=== PATIENT | female | born 1985 | race African-American/Black ===

== ENCOUNTER 2020-01-09 08:59 | Emergency (ER) | payer MEDICARE, MEDICAID, SELFPAY ==
[2020-01-09 09:31] VITALS: BP 135/92; PULSE 76; RESP 19; TEMP 37.3; O2SAT 98
--- NOTE | 2020-01-09 10:40 | ED.GENADULT ---
HPI - General Adult General Chief complaint: Upper Respiratory Infection Stated complaint: cold symptoms Time Seen by Provider: 01/09/20 09:36 Source: patient Mode of arrival: ambulatory Limitations: no limitations History of Present Illness HPI narrative: Patient in the room is a 34-year-old female who presents to emergency department for evaluation of congestion rhinorrhea sore throat and cough for the last 2 days patient presents with family noting that she has taken [id number] medications with minimal improvement denies fever chills nausea vomiting diarrhea on arrival is in the room in no distress patient has not been seen for this complaint Related Data Allergies Allergy/AdvReac Type Severity Reaction Status Date / Time No Known Allergies Allergy Verified 07/02/18 18:23 Review of Systems Review of Systems: All systems reviewed & are unremarkable except as noted in HPI and below PMFSH Past Medical History Medical History (Updated 01/09/20 @ 10:43 by Fabián Cardona PA-C) Diabetes mellitus Hearing impaired Social History Social History Gender identity (if verbalized by the patient): Female Exam Narrative: Exam Narrative: GENERAL: Well-appearing, well-nourished, and in no acute distress. HEAD: Normocephalic, atraumatic. EYES: PERRLA and EOMI. ENT: Nares clear, no rhinorrhea or epistaxis. Mucous membranes moist. Oropharynx with erythema and without tonsillar hypertrophy exudate or other lesions. . Uvula midline no trismus or drooling NECK: Supple. No adenopathy or masses. CHEST: Clear to auscultation. No respiratory distress. No wheezes rales or rhonchi HEART: Regular rate and rhythm. No murmur heard. EXTREMITIES: Normal range of motion. No edema. SKIN: Warm, dry, no rash. NEURO: No focal deficits. Alert and oriented x3. Cranial nerves II through XII grossly intact. Normal speech and gait PSYCH: Normal mood and affect. Course Course Emergency Course: Patient in the room in no distress aware of case findings treatment plan and diagnosis agreeing to follow-up as directed Vital Signs Vital signs: Vital Signs Temperature 99.1 F 01/09/20 09:31 Pulse Rate 76 01/09/20 09:31 Respiratory Rate 19 01/09/20 09:31 Blood Pressure 135/92 H 01/09/20 09:31 Pulse Oximetry 98 01/09/20 09:31 Temperature 99.1 F 01/09/20 09:31 Pulse Rate 76 01/09/20 09:31 Respiratory Rate 19 01/09/20 09:31 Blood Pressure 135/92 H 01/09/20 09:31 Pulse Oximetry 98 01/09/20 09:31 Medical Decision Making MDM Narrative Medical decision making narrative: Patient with likely viral upper respiratory infection afebrile nontoxic-appearing no distress provided with reasons to return and agreeing to follow with primary care felt appropriate for outpatient reevaluation Vital Signs Vital Signs: Vital Signs Temperature 99.1 F 01/09/20 09:31 Pulse Rate 76 01/09/20 09:31 Respiratory Rate 19 01/09/20 09:31 Blood Pressure 135/92 H 01/09/20 09:31 Pulse Oximetry 98 01/09/20 09:31 Temperature 99.1 F 01/09/20 09:31 Pulse Rate 76 01/09/20 09:31 Respiratory Rate 19 01/09/20 09:31 Blood Pressure 135/92 H 01/09/20 09:31 Pulse Oximetry 98 01/09/20 09:31 Lab Data Labs: Influenza A Screen Negative Reference Range: Negative Influenza B Screen Negative Reference Range: Negative Strep Screen Presumptive Negative *(Reference Range: Negative)* Discharge Plan Discharge Clinical Impression: Upper respiratory infection Patient Disposition: Home, Self-Care Condition: Stable Instructions: Antibiotic Form, Cold Symptoms (ED) Additional Instructions: Follow up with your primary care doctor in 5-7 days for re-evaluation. Go to ER for worsening pain, vision changes, nausea/vomiting, fever/chills, weakness, chest pain, shortness of breath, numbness/tingling,
[2020-01-09 10:59] VITALS: PULSE 80; RESP 16; O2SAT 100
== END 2020-01-09 11:34 | disposition home or self-care (01) ==
PROVIDERS: Emergency Provider Emergency Medicine
DX: J06.9 Acute upper respiratory infection, unspecified (principal); E11.9 Type 2 diabetes mellitus without complications
CPT/HCPCS: 87081; 87804; 87880; 99283

== ENCOUNTER 2023-04-24 15:00 | Emergency (ER) | payer OTHER, SELFPAY ==
--- NOTE | ~2023-04-24 | CT_ITS ---
EXAMINATION: CT brain wo con INDICATION: Headache COMPARISON: 10/06/2010 TECHNIQUE: Standard unenhanced head CT. The dose-length product (DLP) was 756.67 mGy-cm. The mA was a djusted according to patient size. Iterative reconstruction technique was employed. FINDINGS: There is no intracranial hemorrhage, acute infarction, or abnormal mass lesion. The ventric les are normal. There is no abnormal mass effect or midline shift. The herrera-white matter differentiat ion is normal. The basal cisterns are patent. There are surgical changes in the orbits. The paranasal sinuses, mastoids and calvarium are normal. IMPRESSION: 1. No acute intracranial abnormality. Reviewed, dictated and finalized at location F.
[2023-04-24 15:15] VITALS: BP 151/92; PULSE 91; RESP 16; TEMP 37; O2SAT 100
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
[2023-04-24] MEDS: SODIUM CHLORIDE 0.9% IV 1,000 ML 999 ML IV CONT ×2 (20:34→22:03)
[2023-04-24] MEDS: KETOROLAC 30 MG/ML VIAL (*BKC) IV PUSH (20:35)
[2023-04-24] MEDS: METOCLOPRAMIDE HCL INJ 10 MG/2 ML VIAL IV PUSH (20:36)
[2023-04-24] MEDS: diphenhydrAMINE HCl INJ 50 MG/ML VIAL 25 MG IV PUSH (20:37)
[2023-04-24] MEDS: ACETAMINOPHEN 500 MG TABLET 1000 MG PO (20:37)
[2023-04-24 20:46] LABS: Basophils Percent Auto 0.7 % (0.2-1.2); Eosinophils Percent Auto 0.2 % (0-4.4); Hematocrit 35.7 % (37.0-47.0); Hemoglobin 11.3 g/dL (12.0-15.0); Immature Granulocyte Absolute 0.02 K/mm3 (0.00-0.031); Immature Granulocyte Percent A 0.3 % (0-0.5); Immature Platelet Fraction Pct 14.8 % (0.9-11.2); Lymphocytes Absolute Auto 2.11 K/mm3 (0.9-3.2); Lymphocytes Percent Auto 35.5 % (18.3-44.2); Mean Corpuscular HGB Conc 31.7 g/dl (32-36); Mean Corpuscular Hemoglobin 28.3 pg (26-34); Mean Corpuscular Volume 89.3 fl (80-100); Mean Platelet Volume 13.7 fl (7.4-10.4); Monocytes Absolute Auto 0.5 K/mm3 (0.1-0.6); Monocytes Percent Auto 8.8 % (2.6-8.5); Neutrophils Absolute Auto 3.2 K/mm3 (1.3-6.7); Neutrophils Percent Auto 54.5 % (45.5-73.1); Platelet Count Result 173 k/mm3 (150-375); Red Cell Distribution Width 12.2 % (11.5-14.5); White Blood Count 5.9 K/mm3 (4.5-10.0)
[2023-04-24 21:19] LABS: Alanine Aminotransferase 18 U/L (6-35); Albumin Level 3.8 g/dL (3.5-5.1); Alkaline Phosphatase 95 U/L (38-126); Anion Gap 10 mmol/L (8-16); Aspartate Amino Transferase 20 U/L (14-36); Bilirubin,Total 1.1 mg/dL (0.2-1.3); Blood Urea Nitrogen 32 mg/dL (7-17); Calcium 8.7 mg/dL (8.4-10.2); Carbon Dioxide 23 mmol/L (22-30); Chloride 95 mmol/L (98-107); Estimated CRCL calculation 56 ml/min; Estimated Glomerular Filt Rate > 60; Glucose 437 mg/dL (65-110); Potassium 4.5 mmol/L (3.4-5.0); Sodium 128 mmol/L (137-145)
[2023-04-24 21:20] LABS: Influenza A QL RT-PCR Negative (Negative); Influenza B QL RT-PCR Negative (Negative); SARS-CoV-2 RNA PCR Negative (Negative)
== END 2023-04-24 22:59 | disposition home or self-care (01) ==
PROVIDERS: Emergency Provider Physician Assistant
DX: R51.9 Headache, unspecified (principal); E10.65 Type 1 diabetes mellitus with hyperglycemia; Z79.4 Long term (current) use of insulin; H91.90 Unspecified hearing loss, unspecified ear
CPT/HCPCS: 36415; 70450; 80053; 85025; 85055; 87636; 96361; 96374; 96375; 99284; A9270; J1200; J1885; J2765; J7030

== ENCOUNTER 2023-05-04 14:20 | Emergency (ER) | payer OTHER, SELFPAY ==
[2023-05-04 14:48] VITALS: BP 144/95; PULSE 91; RESP 16; TEMP 36.6; O2SAT 100
--- NOTE | 2023-05-04 15:56 | ED.EXTPRO ---
HPI - Extremity Problem General Chief complaint: Extremity Problem,Nontraumatic Stated complaint: Swollen Feet Time Seen by Provider: 05/04/23 15:56 Source: patient Mode of arrival: ambulatory Limitations: no limitations History of Present Illness HPI Narrative: 37 y/o with history of diabetes, visually impaired and hearing impaired, presented with c/o bilateral leg swelling, right worse than left for 2 days. Patient is unsure of blood sugar levels, but reports med compliance. Denies redness to legs, denies calf pain. Denies chest pain, palpitations, sob, decreased urinary output, fatigue, nausea, vomiting, fevers or chills. Reports increase in salty foods. Patient uses ASL and mother at bedside assisted in translation. Related Data Home Medications Medication Instructions Recorded Confirmed Novolog FlexPen U-100 Insulin 3 units subcut DIRECTED 05/04/23 05/04/23 brimonidine 0.2 % eye drops 1 drp ophthalmic (eye) DIRECTED 05/04/23 05/04/23 dorzolamide 22.3 mg-timolol 6.8 1 drp ophthalmic (eye) DIRECTED 05/04/23 05/04/23 mg/mL eye drops insulin glargine 100 unit/mL 15 unit subcut DAILY 05/04/23 05/04/23 subcutaneous cartridge Allergies Allergy/AdvReac Type Severity Reaction Status Date / Time No Known Allergies Allergy Verified 05/04/23 14:35 Review of Systems Review of Systems: CONSTITUTIONAL: Denies body aches, fever, chills, or sweats. EYES: Denies visual changes, redness, or discharge. ENT: Denies rhinorrhea, congestion, sore throat, or otalgia. CARDIOVASCULAR: Reports BLE edema denies chest pain, palpitations. RESPIRATORY: Denies cough or dyspnea. GASTROINTESTINAL: Denies abdominal pain, nausea, vomiting, or diarrhea. GENITOURINARY: Denies dysuria or hematuria. SKIN: Denies rash, itching, or wounds. MUSCULOSKELETAL: Denies back pain, joint pain, or myalgia. NEUROLOGIC: Denies headache, numbness, tingling, or weakness. PSYCH: Denies depression or anxiety. All systems reviewed & are unremarkable except as noted in HPI and below PMFSH Past Medical History Medical History Diabetes mellitus Hearing impaired Visual impairment Social History Social History Gender identity (if verbalized by the patient): Female Comments At time of signature, I have reviewed and agree with nursing past medical, surgical, social and family history unless otherwise noted. Please see nursing chart for further information. There is no relevant family history pertinent to the presenting complaint Exam Narrative: GENERAL: Well-appearing, well-nourished, and in no acute distress. HEAD: Normocephalic, atraumatic. EYES: No redness or drainage. ENT: Mucous membranes pink and moist. No rhinorrhea. Bilateral hearing aides. NECK: Normal AROM. Supple. No lymphadenopathy. CHEST: No respiratory distress. Clear to auscultation. HEART: Regular rate and rhythm. No murmur appreciated. Normal peripheral pulses. ABDOMEN: Soft, nontender, nondistended, normal active bowel sounds. MUSCULOSKELETAL: No bony tenderness. EXTREMITIES: Bilateral pedal and ankle edema, 2+ right, 1+ left; Normal range of motion. SKIN: Warm, dry, no rash. Capillary refill normal. Normal skin turgor. Course Course Emergency Course: Patient is aware of diagnosis, understands and agrees to treatment plan. Anticipatory guidance given. Patient agrees to follow-up as directed and is aware of reasons to seek care at the emergency department. Portions of this record may have been created with voice recognition software Level of Care: Express Care Visit Vital Signs Vital signs: Vital Signs Temperature 97.9 F 05/04/23 14:48 Pulse Rate 91 05/04/23 14:48 Respiratory Rate 16 05/04/23 14:48 Blood Pressure 144/95 H 05/04/23 14:48 Pulse Oximetry 100 05/04/23 14:48 Oxygen Delivery Room Air 05/04/23 14:48 Temp
[2023-05-04 16:12] LABS: Glucose Point of Care > 500 mg/dl (65-105)
== END 2023-05-04 16:30 | disposition left against medical advice (07) ==
PROVIDERS: Emergency Provider Nurse Practitioner Family
DX: R22.43 Localized swelling, mass and lump, lower limb, bilateral (principal); E11.65 Type 2 diabetes mellitus with hyperglycemia; Z79.4 Long term (current) use of insulin
CPT/HCPCS: 82948; 99212; G0463

== ENCOUNTER 2023-06-22 12:41 | Emergency (ER) | payer OTHER, SELFPAY ==
--- NOTE | ~2023-06-22 | US_ITS ---
EXAMINATION: US right upper quadrant DATE: 06/22/2023 14:06 INDICATION: epigastric pain TECHNIQUE: Multiple grayscale and Doppler ultrasound images of the right upper quadrant were obtained . COMPARISON: None available. FINDINGS: The visualized portions of the pancreas are normal. The liver is normal with normal echogen icity and echotexture. No surface nodularity. Normal hepatopetal flow in the main portal vein. The ga llbladder was contracted. The common bile duct measures mm. There was no sonographic Fall sign. IMPRESSION: Contracted gallbladder, which limits evaluation. Otherwise normal right upper quadrant ultrasound fin dings. Reviewed, dictated and finalized at location K. IMPRESSION: Contracted gallbladder, which limits evaluation. Otherwise normal right upper q uadrant ultrasound findings.
[2023-06-22 12:44] VITALS: BP 170/86; PULSE 95; RESP 20; TEMP 36.1; O2SAT 100
[2023-06-22 13:46] LABS: Appearance Urine Clear (Clear); Bacteria Urine None Seen /hpf; Bilirubin Urine Negative (Negative); Color Urine Yellow (Yellow); Glucose Urine UA Negative (Negative); Ketones Urine Negative (Negative); Leukocyte Esterase Ur Trace LEU/UL (Negative); Nitrate Urine Negative (Negative); Non Pathogenic Casts 0-2; Protein Urine 3+ mg/dL (Negative); RBC Urine 0-2 /hpf (0-2); Specific Grav Ur 1.012 (1.001-1.035); Squamous Epithelial Cell Urine None seen /hpf (Few); Urobilinogen Urine 0.2 mg/dL (<2.0)
--- NOTE | 2023-06-22 13:47 | ED.ABDPAIN ---
HPI - Abdominal Pain General Chief Complaint: Abdominal Pain Stated Complaint: abdominal pain Time Seen by Provider: 06/22/23 13:35 History of Present Illness HPI narrative: Pt presents with epigastric abdominal pain for a week tio chavarria per mother. Pt has had some vomiting but no diarrhea and no melena. Pt denies fever. Related Data Home Medications Medication Instructions Recorded Confirmed Novolog FlexPen U-100 Insulin 3 units subcut DIRECTED 05/04/23 05/04/23 brimonidine 0.2 % eye drops 1 drp ophthalmic (eye) DIRECTED 05/04/23 05/04/23 dorzolamide 22.3 mg-timolol 6.8 1 drp ophthalmic (eye) DIRECTED 05/04/23 05/04/23 mg/mL eye drops insulin glargine 100 unit/mL 15 unit subcut DAILY 05/04/23 05/04/23 subcutaneous cartridge Allergies Allergy/AdvReac Type Severity Reaction Status Date / Time No Known Allergies Allergy Verified 06/22/23 13:13 Review of Systems Review of Systems: All systems reviewed & are unremarkable except as noted in HPI and below PMFSH Past Medical History Medical History Diabetes mellitus Hearing impaired Visual impairment Social History Social History Gender identity (if verbalized by the patient): Female Exam Const: General: healthy appearing Nutritional Appearance: well nourished Orientation/consciousness: patient oriented x3 Limitations: no limitations Eyes: Conjunctivae: conjunctivae normal EOM: EOMs intact bilaterally Neck: Neck: normal visual inspection Chest: Chest palpation & inspection: normal inspection of the chest Resp: Effort & Inspection: normal respiratory effort Auscultation: clear to auscultation bilaterally Cardio: Rate: regular rate Rhythm: regular rhythm GI: GI Palp: Yes Soft to palpation and Yes Tenderness to palpation present (GI) (epigastrum and ruq) Auscultation: normal bowel sounds Skin: General skin exam: normal color Rashes: no rashes Wounds: no wounds Neuro: General: patient oriented x3 and moves all extremities Speech: normal speech Extrem: General: normal to inspection and no clubbing, cyanosis or edema Psych: Mental Status: mental status grossly normal Affect: normal affect Attitude: cooperative Course Vital Signs Vital signs: Vital Signs Temperature 97.0 F L 06/22/23 12:44 Pulse Rate 95 06/22/23 12:44 Respiratory Rate 20 06/22/23 12:44 Blood Pressure 170/86 H 06/22/23 12:44 Pulse Oximetry 100 06/22/23 12:44 Oxygen Delivery Room Air 06/22/23 12:44 Temperature 97.0 F L 06/22/23 12:44 Pulse Rate 78 06/22/23 14:47 Respiratory Rate 18 06/22/23 14:47 Blood Pressure 157/89 H 06/22/23 14:47 Pulse Oximetry 99 06/22/23 14:47 Oxygen Delivery Room Air 06/22/23 12:44 MDM - Abdominal Pain MDM Narrative Medical decision making narrative: labs and sono fine. mild uti will treat for pain and go home on antibiotics for possible pyelo Differential Diagnosis Differential diagnosis: Likely abdominal pain, gastroenteritis, pancreatitis and other (cholecystitis) Lab Data 06/22/23 13:50 06/22/23 13:50 Labs: Lab Results 06/22/23 06/22/23 Range/Units 13:10 13:50 WBC 5.6 (4.5-10.0) K/mm3 RBC 3.46 L (4.2-5.4) M/mm3 Hgb 10.1 L (12.0-15.0) g/dL Hct 32.0 L (37.0-47.0) % MCV 92.5 (80-100) fl MCH 29.2 (26-34) pg MCHC 31.6 L (32-36) g/dl RDW 11.9 (11.5-14.5) % Plt Count 315 D (150-375) k/mm3 MPV 11.4 H (7.4-10.4) fl Immature Gran % (Auto) 0.4 (0-0.5) % Neut % (Auto) 54.0 (45.5-73.1) % Lymph % (Auto) 35.2 (18.3-44.2) % [place] % (Auto) 7.4 (2.6-8.5) % Eos % (Auto) 2.3 (0-4.4) % Baso % (Auto) 0.7 (0.2-1.2) % Lymph # (Auto) 1.96 (0.9-3.2) K/mm3 [place] # (Auto) 0.4 (0.1-0.6) K/mm3 Eos # (Auto) 0.1 (0-0.3) K/mm3 Baso # (Auto) 0.0 (0.0-0.1) K/mm3 Abs Immat G
[2023-06-22 13:54] LABS: Add Urine Microscopic? YES
[2023-06-22 13:59] LABS: Basophils Percent Auto 0.7 % (0.2-1.2); Eosinophils Absolute Auto 0.1 K/mm3 (0-0.3); Eosinophils Percent Auto 2.3 % (0-4.4); Hemoglobin 10.1 g/dL (12.0-15.0); Immature Granulocyte Absolute 0.02 K/mm3 (0.00-0.031); Immature Granulocyte Percent A 0.4 % (0-0.5); Lymphocytes Absolute Auto 1.96 K/mm3 (0.9-3.2); Lymphocytes Percent Auto 35.2 % (18.3-44.2); Mean Corpuscular HGB Conc 31.6 g/dl (32-36); Mean Corpuscular Hemoglobin 29.2 pg (26-34); Mean Corpuscular Volume 92.5 fl (80-100); Mean Platelet Volume 11.4 fl (7.4-10.4); Monocytes Absolute Auto 0.4 K/mm3 (0.1-0.6); Monocytes Percent Auto 7.4 % (2.6-8.5); Platelet Count Result 315 k/mm3 (150-375); Red Blood Count 3.46 M/mm3 (4.2-5.4); Red Cell Distribution Width 11.9 % (11.5-14.5); White Blood Count 5.6 K/mm3 (4.5-10.0)
[2023-06-22 14:10] LABS: Alanine Aminotransferase 18 U/L (6-35); Albumin Level 3.6 g/dL (3.5-5.1); Alkaline Phosphatase 111 U/L (38-126); Anion Gap 3 mmol/L (8-16); Aspartate Amino Transferase 27 U/L (14-36); Bilirubin,Total 0.3 mg/dL (0.2-1.3); Blood Urea Nitrogen 26 mg/dL (7-17); Calcium 9.2 mg/dL (8.4-10.2); Carbon Dioxide 27 mmol/L (22-30); Chloride 105 mmol/L (98-107); Estimated CRCL calculation 55 ml/min; Estimated Glomerular Filt Rate 52; Glucose 216 mg/dL (65-110); Lipase 100 U/L (23-300); Potassium 3.8 mmol/L (3.4-5.0); Sodium 135 mmol/L (137-145)
[2023-06-22 14:47] VITALS: BP 157/89; PULSE 78; RESP 18; O2SAT 99
== END 2023-06-22 14:48 | disposition home or self-care (01) ==
PROVIDERS: Emergency Provider Emergency Medicine; PCP Physician Assistant
DX: N39.0 Urinary tract infection, site not specified (principal); E11.9 Type 2 diabetes mellitus without complications; Z79.4 Long term (current) use of insulin
CPT/HCPCS: 36415; 76705; 80053; 81001; 81025; 83690; 85025; 87077; 87086; 87186; 99284

== ENCOUNTER 2023-07-02 18:29 | Emergency (ER) | payer OTHER, SELFPAY ==
[2023-07-02] VITALS (19 sets, daily range): BP systolic 160–175; BP diastolic 94–113; PULSE 67–97; RESP 15–18; TEMP 36.3–36.6; O2SAT 91–100
--- NOTE | ~2023-07-02 | XR_ITS ---
EXAMINATION: XR chest 1V portable Exam Date/Time: 07/02/2023 20:10 CDT HISTORY: epigastric pain Comparison: None. RESULT: Lines, tubes, and devices: None. Lungs and pleura: Slightly low lung volumes with crowding, otherwise clear. Cardiomediastinal silhouette: Normal. Other: No acute osseous or upper abdominal finding. IMPRESSION: No acute cardiopulmonary process. Reviewed, dictated and finalized at location K.
--- NOTE | ~2023-07-02 | CT_ITS ---
EXAMINATION: CT abdomen pelvis w con DATE: 07/02/2023 21:14 INDICATION: abdominal pain TECHNIQUE: Computed tomography (CT) of the abdomen and pelvis was performed with 100 mL Omnipaque-350 intravenous contrast. Automated exposure control and iterative reconstruction technique were employe d. The dose-length product was 695.05 mGy-cm. COMPARISON: None. FINDINGS: Lower thorax: Unremarkable Liver: Normal. Biliary/Gallbladder: Gallbladder is collapsed. No bile duct dilation. Pancreas: No mass or duct dilation. Spleen: Normal. Adrenals:No mass. Kidneys: No mass, stone, or hydronephrosis. GI tract: Moderate distal esophageal and gastric wall edema. No small or large bowel dilation. Normal appendix. Mesentery/Peritoneum: No ascites, mass, or free air. Retroperitoneum: No mass. Pelvis: Moderate wall thickening in a well distended urinary bladder. Retroverted and retroflexed taylor jacqueline. Soft Tissues: Soft tissues and body wall unremarkable. Bones: No acute osseous finding. IMPRESSION: Moderate esophagitis/gastritis. Cystitis. Reviewed, dictated and finalized at location K.
--- NOTE | ~2023-07-02 | US_ITS ---
EXAMINATION: US venous doppler [facility] DATE: 07/02/2023 21:28 INDICATION: lower extremity edema eval for dvt . TECHNIQUE: Grayscale images without and with compression and Doppler images of the bilateral lower ex tremity veins were obtained. COMPARISON: None FINDINGS: The right common femoral vein, profunda (deep) femoral vein, femoral vein, popliteal vein, peroneal v ein, posterior tibial veins, gastrocnemius vein, and greater saphenous vein are patent. The left common femoral vein, profunda (deep) femoral vein, femoral vein, popliteal vein, peroneal v ein, posterior tibial veins, gastrocnemius vein, and greater saphenous vein are patent. IMPRESSION: Patent bilateral lower extremity veins. No evidence of deep venous thrombosis. Reviewed, dictated and finalized at location K.
[2023-07-02 19:11] LABS: Basophils Absolute Auto 0.1 K/mm3 (0.0-0.1); Basophils Percent Auto 0.9 % (0.2-1.2); Eosinophils Absolute Auto 0.1 K/mm3 (0-0.3); Eosinophils Percent Auto 1.9 % (0-4.4); Hematocrit 34.4 % (37.0-47.0); Hemoglobin 10.1 g/dL (12.0-15.0); Immature Granulocyte Absolute 0.02 K/mm3 (0.00-0.031); Immature Granulocyte Percent A 0.3 % (0-0.5); Lymphocytes Absolute Auto 2.06 K/mm3 (0.9-3.2); Lymphocytes Percent Auto 30.7 % (18.3-44.2); Mean Corpuscular HGB Conc 29.4 g/dl (32-36); Mean Corpuscular Hemoglobin 29.5 pg (26-34); Mean Corpuscular Volume 100.6 fl (80-100); Mean Platelet Volume 11.5 fl (7.4-10.4); Monocytes Absolute Auto 0.5 K/mm3 (0.1-0.6); Monocytes Percent Auto 6.8 % (2.6-8.5); Neutrophils Percent Auto 59.4 % (45.5-73.1); Platelet Count Result 254 k/mm3 (150-375); Red Blood Count 3.42 M/mm3 (4.2-5.4); Red Cell Distribution Width 11.9 % (11.5-14.5); White Blood Count 6.7 K/mm3 (4.5-10.0)
--- NOTE | 2023-07-02 19:20 | ECG_ITS ---
Measurements Intervals Yeso Rate: 91 P: 68 [place]: 154 QRS: 19 QRSD: 77 T: -5 QT: 355 QTc: 438 Interpretive Statements SINUS RHYTHM NONSPECIFIC T-WAVE ABNORMALITY BORDERLINE ECG NO PREVIOUS ECG AVAILABLE FOR COMPARISON Electronically Signed On 07-03-2023 7:42:10 CDT by Rui Landry M.D.
[2023-07-02 19:27] LABS: Anisocytosis 1+ (NORMAL); Ovalocytes 1+ (NORMAL); Platelet Estimate Adequate (Adequate); Schistocytes None Seen (NORMAL)
[2023-07-02 19:45] LABS: Alanine Aminotransferase 20 U/L (6-35); Albumin Level 4.1 g/dL (3.5-5.1); Alkaline Phosphatase 113 U/L (38-126); Anion Gap 8 mmol/L (8-16); Aspartate Amino Transferase 30 U/L (14-36); Bilirubin,Total 0.7 mg/dL (0.2-1.3); Blood Urea Nitrogen 36 mg/dL (7-17); Calcium 9.6 mg/dL (8.4-10.2); Carbon Dioxide 23 mmol/L (22-30); Chloride 105 mmol/L (98-107); Estimated CRCL calculation 45 ml/min; Estimated Glomerular Filt Rate 48; Glucose 101 mg/dL (65-110); Lipase 91 U/L (23-300); Potassium 4.1 mmol/L (3.4-5.0); Sodium 136 mmol/L (137-145)
[2023-07-02 19:51] LABS: Appearance Urine Clear (Clear); Bacteria Urine None Seen /hpf; Bilirubin Urine Negative (Negative); Blood Urine Negative (Negative); Color Urine Yellow (Yellow); Glucose Urine UA Negative (Negative); Ketones Urine Negative (Negative); Leukocyte Esterase Ur Negative LEU/UL (Negative); Nitrate Urine Negative (Negative); Non Pathogenic Casts 0-2; Protein Urine 2+ mg/dL (Negative); RBC Urine 0-2 /hpf (0-2); Specific Grav Ur 1.006 (1.001-1.035); Squamous Epithelial Cell Urine None seen /hpf (Few); Urobilinogen Urine 0.2 mg/dL (<2.0); WBC Urine 0-5 /hpf; pH Urine 5.5 (5.0-9.0)
[2023-07-02 19:52] LABS: Add Urine Microscopic? YES
[2023-07-02 20:05] LABS: NT Pro B Type Natriuretic Pept 248 pg/mL (19.9-100); Troponin I 0.022 ng/mL (0.000-0.034)
[2023-07-02 20:06] LABS: Magnesium 2.2 mg/dL (1.6-2.3)
--- NOTE | 2023-07-02 20:08 | ED.GENADULT ---
HPI - General Adult General Chief complaint: Unspecified Stated complaint: BACK,ABD PAIN, FEET SWELLING Time Seen by Provider: 07/02/23 19:11 History of Present Illness HPI narrative: Patient 37-year-old female who presents the emergency department with chief complaint of epigastric pain. Patient reports that at present time she been having discomfort patient states that she been seen in the emergency department and has been instructed to follow-up with her primary care provider the patient states that she called her primary doctor who told her to come back to the emergency department for reevaluation. Patient reports that she has not had a GI evaluation reports no endoscopy reports she still has her gallbladder and reports she still has her appendix. Related Data Home Medications Medication Instructions Recorded Confirmed Novolog FlexPen U-100 Insulin 3 units subcut DIRECTED 05/04/23 05/04/23 brimonidine 0.2 % eye drops 1 drp ophthalmic (eye) DIRECTED 05/04/23 05/04/23 dorzolamide 22.3 mg-timolol 6.8 1 drp ophthalmic (eye) DIRECTED 05/04/23 05/04/23 mg/mL eye drops insulin glargine 100 unit/mL 15 unit subcut DAILY 05/04/23 05/04/23 subcutaneous cartridge Allergies Allergy/AdvReac Type Severity Reaction Status Date / Time No Known Allergies Allergy Verified 06/22/23 13:13 Review of Systems Review of Systems: A 10 system review of systems was completed on the patient and is negative except for what is stated in the HPI. Nursing and ancillary documentation was reviewed. [facility] Past Medical History Medical History Diabetes mellitus Hearing impaired Visual impairment Social History Social History Gender identity (if verbalized by the patient): Female Exam Narrative: GENERAL: Well-appearing, well-nourished, and in no acute distress. HEAD: Normocephalic, atraumatic. EYES: PERRLA and EOMI. ENT: Nares clear, no rhinorrhea or epistaxis. Mucous membranes moist. NECK: Supple. CHEST: Clear to auscultation. No respiratory distress. HEART: Regular rate and rhythm. No murmur heard. Normal peripheral pulses. ABDOMEN: Soft, tender to palpation in the epigastric region, nondistended, normal active bowel sounds. EXTREMITIES: Normal range of motion. No edema. SKIN: Warm, dry, no rash. NEURO: No focal deficits. Alert and oriented x3. PSYCH: Normal mood and affect. Course Vital Signs Vital signs: Vital Signs Temperature 36.3 C L 07/02/23 18:41 Pulse Rate 97 07/02/23 18:41 Respiratory Rate 18 07/02/23 18:41 Blood Pressure 175/94 H 07/02/23 18:41 Pulse Oximetry 97 07/02/23 18:41 Oxygen Delivery Room Air 07/02/23 18:41 Temperature 36.6 C 07/02/23 23:09 Pulse Rate 67 07/02/23 23:09 Respiratory Rate 15 07/02/23 23:09 Blood Pressure 160/113 H 07/02/23 23:09 Pulse Oximetry 100 07/02/23 23:09 Oxygen Delivery Room Air 07/02/23 18:41 Medical Decision Making [facility] Narrative Medical decision making narrative: Differential diagnosis includes UTI, intra-abdominal infection, gastritis, CHF, renal failure Laboratory studies showed CBC within normal limits hemoglobin was 10.1 electrolytes BUN was 36 and creatinine was 1.5 initial troponin was 0.0223-hour delta was less than 0.012. BNP was 248 Chest x-ray showed no pulmonary edema CT scan of the abdomen pelvis showed evidence of gastritis Venous duplex showed no evidence of DVT Patient was given Protonix in the emergency department will be started on Protonix and Carafate the patient's follow-up with her primary care provider and may need GI referral Vital Signs Vital Signs: Vital Signs Temperature 36.3 C L 07/02/23 18:41 Pulse Rate 97 07/02/23 18:41 Respiratory Rate 18 07/02/23 18:41 Blood Pressure 175/94 H 07/02/23 18:41 Pulse Oximetry 97 07/02/23 18:41 Oxyge
[2023-07-02] MEDS: PANTOPRAZOLE SODIUM IV 40 MG VIAL IV PUSH (20:19)
[2023-07-02 21:30] LABS: D Dimer 0.29 ug/mL (<0.48)
[2023-07-02 22:53] LABS: Troponin I < 0.012 ng/mL (0.000-0.034)
== END 2023-07-02 23:53 | disposition home or self-care (01) ==
PROVIDERS: General Practice; Emergency Provider Emergency Medicine; PCP Physician Assistant
DX: K29.70 Gastritis, unspecified, without bleeding (principal); M79.89 Other specified soft tissue disorders; M54.9 Dorsalgia, unspecified; E11.9 Type 2 diabetes mellitus without complications
CPT/HCPCS: 36415; 71045; 74177; 80053; 81001; 81025; 83690; 83735; 83880; 84484; 85025; 85380; 93005; 93970; 96374; 99284; C9113; Q9967